=== PATIENT | male | born 1945 | race Caucasian/White ===

== ENCOUNTER → 2016-05-16 | Outpatient (CLI) | payer OTHER ==
[2016-05-16 13:39] LABS: BLOOD UREA NITROGEN 15 mg/dl (7-18); BUN/CREATININE RATIO 18.3 (10-20); CALCIUM 9.2 mg/dl (8.5-10.1); CARBON DIOXIDE 29 mmol/L (21-32); CHLORIDE 104 mmol/L (98-107); CREATININE 0.83 mg/dl (0.60-1.40); GLUCOSE 100 mg/dl (70-99); POTASSIUM 3.8 mmol/L (3.5-5.1); SODIUM 143 mmol/L (136-145)
--- NOTE | 2016-05-21 10:10 | CODING QUERY MEDICAL NECESSITY ---
SUPPORTING DIAGNOSIS NEEDED A supporting diagnosis is required for the test/procedure performed on this patient in order for us to be reimbursed by the patient's insurance. Please provide a supporting diagnosis for the following test/procedure listed below next to the test name along with your signature. *If there is no additional diagnosis for this patient that would support the following test/procedure please document that below next to the test/procedure. Test(s)/Procedure(s) that require a supporting diagnosis: * PSA DIAGNOSIS: * DOS: 05/16/16 Provider Signature: Date: Thank you Sepideh Arroyo [facility] Information Management Once completed, please kindly fax back to [phone] For questions please call [phone]
== END | disposition home or self-care (01) ==
LOC: C.LABMFLN 11:00
PROVIDERS: ATTEND Family Medicine
DX: E29.9 Testicular dysfunction, unspecified (principal); J45.909 Unspecified asthma, uncomplicated; R03.0 Elevated blood-pressure reading, without diagnosis of hypertension; Z12.5 Encounter for screening for malignant neoplasm of prostate

== ENCOUNTER → 2017-07-02 | Outpatient (CLI) | payer OTHER ==
[2017-07-02 12:34] LABS: HEMATOCRIT 36.4 % (42-52)
[2017-07-02 12:54] LABS: BLOOD UREA NITROGEN 20 mg/dl (7-18); CALCIUM 8.8 mg/dl (8.5-10.1); CARBON DIOXIDE 33 mmol/L (21-32); GLUCOSE 91 mg/dl (70-99); SODIUM 140 mmol/L (136-145)
== END | disposition home or self-care (01) ==
LOC: C.LABMFLN 10:18
PROVIDERS: ATTEND Family Medicine
DX: E29.9 Testicular dysfunction, unspecified (principal); J45.909 Unspecified asthma, uncomplicated

== ENCOUNTER 2023-03-17 08:30 | Observation (INO) ==
--- NOTE | 2023-02-10 10:53 | PAT Medication Instructions ---
Medication Instructions Date of Service February 10, 2023 Home Medications Medication Instructions Recorded albuterol sulfate 90 mcg/actuation 2 puff inhalation Q4H PRN 08/22/22 aerosol inhaler (Ventolin HFA) shortness of breath or wheezing #1 ea fluticasone propionate 44 44 mcg inhalation Q12H #10.6 grams 08/22/22 mcg/actuation HFA aerosol inhaler (Flovent HFA) fluticasone propionate 50 2 spray intranasal HS #9.9 grams 08/22/22 mcg/actuation nasal spray,suspension (Allergy Relief (fluticasone)) albuterol sulfate 90 mcg/actuation aerosol inhaler (Ventolin HFA) 2 puff inhalation Q4H PRN fluticasone propionate 44 mcg/actuation HFA aerosol inhaler (Flovent HFA) 44 mcg inhalation Q12H fluticasone propionate 50 mcg/actuation nasal spray,suspension (Allergy Relief (fluticasone)) 2 spray intranasal HS Folate 1 dose PO DAILY acetaminophen 325 mg tablet (Tylenol) 325 mg PO QID PRN cholecalciferol (vitamin D3) 25 mcg (1,000 unit) chewable tablet (Vitamin D3) 25 mcg PO DAILY cyanocobalamin (vitamin B-12) 50 mcg tablet 50 mcg PO UD ibuprofen 200 mg tablet 200 mg PO Q6H PRN magnesium 250 mg tablet 250 mg PO BID potassium 99 mg tablet 99 mg PO DAILY zinc acetate 25 mg (zinc) capsule 25 mg PO DAILY ASK your surgeon for instructions ibuprofen 200 mg tablet 200 mg PO Q6H PRN DO NOT take the morning of surgery Folate 1 dose PO DAILY cholecalciferol (vitamin D3) 25 mcg (1,000 unit) chewable tablet (Vitamin D3) 25 mcg PO DAILY cyanocobalamin (vitamin B-12) 50 mcg tablet 50 mcg PO UD magnesium 250 mg tablet 250 mg PO BID potassium 99 mg tablet 99 mg PO DAILY zinc acetate 25 mg (zinc) capsule 25 mg PO DAILY Take morning of surgery With a small sip of water, OTHERWISE NOTHING TO EAT OR DRINK AFTER MIDNIGHT: albuterol sulfate 90 mcg/actuation aerosol inhaler (Ventolin HFA) 2 puff inhalation Q4H PRN(use if needed; please bring with you to hospital day of surgery if possible) fluticasone propionate 44 mcg/actuation HFA aerosol inhaler (Flovent HFA) 44 mcg inhalation Q12H acetaminophen 325 mg tablet (Tylenol) 325 mg PO QID PRN(if needed) Take evening before surgery albuterol sulfate 90 mcg/actuation aerosol inhaler (Ventolin HFA) 2 puff inhalation Q4H PRN(if needed) fluticasone propionate 44 mcg/actuation HFA aerosol inhaler (Flovent HFA) 44 mcg inhalation Q12H fluticasone propionate 50 mcg/actuation nasal spray,suspension (Allergy Relief (fluticasone)) 2 spray intranasal HS acetaminophen 325 mg tablet (Tylenol) 325 mg PO QID PRN(if needed) magnesium 250 mg tablet 250 mg PO BID Other Notes If you have any questions please call us at [phone] or [phone] or [phone] or [phone]
--- NOTE | 2023-02-13 10:54 | Anesthesiology Consultation ---
Date of Service February 13, 2023 Assessment & Plan (1) Encounter for pre-operative examination: - left carotid bruit detected at PAT visit. Patient notes that he had testing done years ago at a [facility] and was informed of mild plaque in left carotid. He will need formal imaging prior to surgery. Reported h/o intermittent dizziness/lightheadedness-last occurred over 1 year ago. He was instructed to follow-up with PCP regarding symptoms and carotid imaging. He verbalized understanding and agreement, denied questions or concerns. Workload note sent to [place] PCP requesting coordination of carotid imaging prior to surgery and anemia. Surgeon's office made aware. Chart Review Chart Review: Pending: Refer to Additional Notes / Consult section and Patient seen in Pre Admission Testing Teaching & Discussion Pre-Anesthesia Teaching/Discussion Notes: Instructed NPO after midnight before surgery, except medications with 15 cc of water. Medication instructions provided according to the [facility] guidelines. History Surgery Operation Date: 03/17/23 07:15 Proposed Procedures p L3-L4 & L4-L5 Decompression - Jesse Romero MD Height/Weight Height: 5 ft 7 in Weight: 52.5 kg Allergies Allergy/AdvReac Type Severity Reaction Status Date / Time NSAIDS (Non-Steroidal AdvReac Intermediate HTN Verified 02/06/23 11:39 Anti-Inflamma Medications Home Medications Medication Instructions Recorded Confirmed Last Taken albuterol sulfate 90 mcg/actuation 2 puff inhalation Q4H PRN 08/22/22 02/06/23 Unknown aerosol inhaler (Ventolin HFA) shortness of breath or wheezing #1 ea fluticasone propionate 44 44 mcg inhalation Q12H #10.6 grams 08/22/22 02/06/23 Unknown mcg/actuation HFA aerosol inhaler (Flovent HFA) fluticasone propionate 50 2 spray intranasal HS #9.9 grams 08/22/22 02/06/23 Unknown mcg/actuation nasal spray,suspension (Allergy Relief (fluticasone)) Folate 1 dose PO DAILY 02/06/23 02/06/23 Unknown acetaminophen 325 mg tablet 325 mg PO QID PRN Pain 02/06/23 02/06/23 Unknown (Tylenol) cholecalciferol (vitamin D3) 25 25 mcg PO DAILY 02/06/23 02/06/23 Unknown mcg (1,000 unit) chewable tablet (Vitamin D3) cyanocobalamin (vitamin B-12) 50 50 mcg PO UD 02/06/23 02/06/23 Unknown mcg tablet ibuprofen 200 mg tablet 200 mg PO Q6H PRN Pain 02/06/23 02/06/23 Unknown magnesium 250 mg tablet 250 mg PO BID 02/06/23 02/06/23 Unknown potassium 99 mg tablet 99 mg PO DAILY 02/06/23 02/06/23 Unknown zinc acetate 25 mg (zinc) capsule 25 mg PO DAILY 02/06/23 02/06/23 Unknown Past Medical History Medical History (Updated 02/13/23 @ 11:22 by Lila Hutchinson PA-C) GERD (gastroesophageal reflux disease) controlled, stable per pt-occurs if eats too much chocolate per pt Cardiac murmur very mild per pt; not noted at [place] PCP office visit 07/2022 Facet syndrome, lumbar Lower back pain Asthma well controlled > rare res inh use-last rescue inhaler use 2 yrs ago Elevated BP without diagnosis of hypertension Patient denies h/o stroke, seizures, heart attack, heart failure, DM, blood clots/DVTs or blood transfusions. Exercise / Class Metabolic Activity II 4-5 Yardwork/Stairs/Walk up hill (denies chest discomfort or shortness of breath with 1 FOS) Past Family History Family History Mother Myocardial infarction Sister Myocardial infarction Father Tuberculosis Denies family history of Ovarian cancer Prostate cancer Breast cancer Colorectal cancer Past Surgical History Surgical History S/P epidural steroid injection History of colonoscopy History of tooth extraction H/O sinus surgery Past Anesthesia History No Hx of Anesthesia Complications and No Family Hx of Anesthesia Complications History of PONV No Hx of Motion Sickness and History of PONV (denies needing scop patch) Social History Smoking Status: Never smoker Do You Dip or Chew Tobacco: No Hx Alcohol Use: No Hx Substance Use: No substance use type: does not use Review of Systems Snoring, denies witnessed apneas. Patient denies chest pain, shortness of breath, dyspnea on exertion, fever, chills, cough, wheezing, dizziness, lightheadedness, presyncope, visual changes, or palpitations. Physical Exam Vital Signs Vitals BP 180/70 left arm, 168/69 left arm manual after patient rested (Pt notes chronic h/o white coat HTN, states BP today at home was 116/70s) P 83 TEMP 97.6 SP02 96% on RA RESP 17 Physical Patient resting comfortably in chair in no acute distress, alert and oriented, responding appropriately throughout visit Full cervical extension range of motion without pain TMD 3.5 finger breadths Mallampati Score 2 Dentition: intact, denies chipped or loose teeth, caps/crowns, implants or bridges Lungs: normal respiratory effort. Good air movement, clear throughout to auscultation, no adventitious breath sounds Cardiac: regular rate and rhythm, no murmurs noted Carotid arteries: faint left carotid bruit, no right carotid bruit Lab Results Anesthesia Preop Results Results Anesthesia Widget: WBC 6.60 K/ul (4.8-10.8) 02/13/23 Hgb 12.1 g/dl (14.0-18.0) L 02/13/23 Hct 38.4 % (42.0-52.0) L 02/13/23 Plt 198 K/uL (130-400) 02/13/23 Na 140 mmol/L (136-145) 02/13/23 K 4.2 mmol/L (3.5-5.1) 02/13/23 Cl 103 mmol/L (98-107) 02/13/23 CO2 30 mmol/L (21-32) 02/13/23 BUN 25 mg/dl (6-23) H 02/13/23 Creat 0.76 mg/dl (0.6-1.4) 02/13/23 Glucose Level 98 mg/dl (70-99(Fasting)) 02/13/23 PT 10.9 Seconds (9.0-12.0) 02/13/23 PTT 27 Seconds (21-31) 02/13/23 INR 1.0 (0.9-1.1) 02/13/23 Blood Type B Positive 02/13/23 Antibody Screen NEGATIVE 02/13/23 Testing Electrocardiogram Date: 02/13/23 NSR, rate 65 bpm RA enlargement Rightward axis
[2023-03-17] MEDS: LR 15ML/HR IV SCH (08:55)
[2023-03-17] MEDS: LR 60ML/HR IV SCH (09:01)
[2023-03-17] MEDS ORDERED: ACETAMINOPHEN 1000 MG/100 ML IV IV ONE (09:23)
--- OUTSIDE RECORDS SUMMARY | 2023-03-17 09:31 | External Medical Summary | Summary of Care ---
Author Name Unknown Organization [facility] Address [address] [place] [address] Phone [phone] Care Team Providers Care Surface Miner Name Role Phone Brock Husain MD Primary Care Provider [phone] Encounter Details Date Type Department Care Team (Latest Contact Info) Description 02/25/2023 1:00 PM EST - 02/25/2023 11:59 PM EST Hospital Encounter Vascular Lab, [address] [address] Arrived Discharge Disposition: Home - Self Care Allergies No known active allergiesdocumented as of this encounter (statuses as of 02/26/2023) Medications Medication Sig Dispensed Refills Start Date End Date Status FLONASE 50 MCG/ACT NA SUSP 2 squirts each nostril at bedtime 0 Active VITAMIN C 500 MG PO TABS 1/2 tablet daily 0 Active VITAMIN D 1000 UNITS PO TABS 1/4 tablet daily 0 Active [facility] IRON 240 (27 FE) MG PO TABS one pill each day 0 Active documented as of this encounter (statuses as of 02/26/2023) Social History Tobacco Use Types Packs/Day Years Used Date Smoking Tobacco: Never Assessed Sex and Gender Information Value Date Recorded Sex Assigned at Not on file Gender Identity Not on file Sexual Orientation Not on file Job Start Date Occupation Industry Not on file Not on file Not on file documented as of this encounter Plan of Treatment Scheduled Procedures Name Priority Associated Diagnoses Date/Ti me COLONOSCOPY FLEXIBLE PROXIMA L DIAGNOSTIC Recall History of colonic polyps Health Maintenance Due Date Last Done Comments Depression Screening 1957 Hepatitis C Screening 05/10/1963 DTaP,Tdap,and Td Vaccines (1 - Tdap) 05/10/1962 Zoster Vaccines (1 of 2) 05/10/1993 Influenza Vaccine (FLU shot) (#1) 2022 COLONOSCOPY-EVERY 5 YRS AGES 18-100 05/28/2023 05/27/2018, 05/27/2018, 10/16/2011, Additional history exists Pneumococcal Vaccine: 65+ Years Completed 05/13/2017, 12/05/2013 COVID-19 Vaccine Completed 12/26/2022, , 05/29/2021, Additional history exists GARDASIL-HPV IMMUNIZATION SERIES Aged Out No longer eligible based on patient's age to complete this topic Hepatitis B Aged Out No longer eligi ble based on patient's age to complete this topic MENINGOCOCCAL (MENACTRA/MENVEO) Aged Out No longer eligible based on patient's age to complete this topic documented as of this encounter Medical Devices Not on filedocumented as of this encounter Procedures Procedure Name Priority Date/Time Associated Diagnosis Comments [facility] DUPLEX CAROTID BILAT Routine 02/25/2023 1:23 PM EST Occlusion and stenosis of left carotid artery documented in this encounter Results * [facility] DUPLEX CAROTID BILAT (02/25/2023 1:23 PM EST) Anatomical Region Laterality Modality Neck, Vascular Ultrasound Narrative 02/25/2023 3:40 PM EST VASCULAR LAB RESULTS DATE OF EXAM: 02/25/23 PRESENTING CONDITIONS: occlusion and stenosis of left carotid artery PHYSICIAN REPORT Carotid Artery Duplex Examination Immediately before proceeding with the vascular lab procedure reported below, the identity of the patient, the correct exam and the correct procedural site were verified. Dyer scale and color flow Doppler imaging was performed for evaluation of the right carotid artery. Duplex examination of the right carotid artery identifies atherosclerotic plaque at the carotid bifurcation. The plaque is echogenic and appears to have a smooth surface. Color Doppler imaging was performed for evaluation of the right carotid bifurcation. Spectral analysis of the right internal carotid artery demonstrates peak systolic velocities of 99 cm/sec. Maximum end diastolic velocities are 23 cm/sec.. Peak right common carotid velocity is 104 cm/sec. The right internal carotid to common carotid ratio is 1.0. The right external carotid artery has a peak velocity of 137 centimeters per second. Dyer scale and color flow Doppler imaging was performed for the evaluation of the left carotid artery. Duplex examination of the left carotid artery identifies atherosclerotic plaque at the carotid bifurcation. The plaque is echogenic and appears to have a smooth surface. Color Doppler imaging was performed for the evaluation of the left carotid bifurcation. Spectral analysis of the left internal carotid artery demonstrates peak systolic velocities of 91 cm/sec. Maximum end diastolic velocities are 26 cm/sec. Peak left common carotid velocity is 85 cm/sec. The left internal carotid to common carotid ratio is 1.1. The left external carotid artery has a peak velocity of 129 centimeters per second. The right vertebral artery demonstrates antegrade flow. The left vertebral artery demonstrates antegrade flow. Impression: Right carotid artery duplex examination indicates evidence of less than 50% stenosis of the internal carotid artery. Left carotid artery duplex examination indicates evidence of less than 50% stenosis of the internal carotid artery. Brock Husain MD RAD VASCULAR documented in this encounter Visit Diagnoses Diagnosis Occlusion and stenosis of left carotid artery Occlusion and stenosis of carotid artery without mention of cerebral infarction documented in this encounter Care Teams Surface Miner Relationship Specialty Start Date End Date Brock Husain MD [address] [place] [address] PCP - General Family Medicine 09/26/14 documented as of this encounter
--- OUTSIDE RECORDS SUMMARY | 2023-03-17 09:31 | External Medical Summary | Summary of Care ---
Author Name Unknown Organization [facility] Address [address] [place] [address] Phone [phone] Care Team Providers Care Cocktail Lounge Manager Name Role Phone Brock uHsain MD Primary Care Provider [phone] Encounter Details Date Type Department Care Team (Late st Contact Info) Description 02/19/2023 Orders Only Access Center, [address] Ext *DO NOT REMOVE THIS DEPARTMENT* [place] [address] Requisition, External Radiology [address] [place] [address] Occlusion and stenosis of left carotid artery* Allergies No known active allergiesdocumented as of this encounter (statuses as of 02/19/2023) Medications Medication Sig Dispensed Refills Start Date [...] as of this encounter (statuses as of 02/19/2023) Social History Tobacco Use Types Packs/Day Years Used Date Smoking Tobacco: Never Assessed Sex and Gender Information Value Date Recorded Sex Assigned at Not on file Gender Identity Not on file Sexual Orientation Not on file Job Start Date Occupation Industry Not on file Not on file Not on file documented as of this encounter Plan of Treatment Upcoming Encounters Date Type Department Care Team (Late st Contact Info) Description 02/25/2023 1:00 PM EST Appointment Vascular Lab, [facility] [address] [place] [id number] Scheduled Orders Name Type Priority Associated Diagnoses Orde r Schedule VASC DUPLEX CAROTID BILAT Medical Imaging Routine Occlusion and stenosis of left carotid artery Expected: 02/19/2023, Expires: 03/22/2024 Scheduled Procedures Name Priority Associated Diagnoses Date/Ti me COLONOSCOPY FLEXIBLE PROXIMA L DIAGNOSTIC Recall History of colonic polyps Health Maintenance Due Date Last Done Comments Depression Screening 1957 Hepatitis C Screening 05/10/1963 DTaP,Tdap,and Td Vaccines (1 - Tdap) 05/10/1962 Zoster Vaccines (1 of 2) 05/10/1993 COVID-19 Vaccine (6 - 2022- season) 2022 12/31/2021, 05/29/2021, 12/14/2020, Additional history exists Influenza Vaccine (FLU shot) (#1) 2022 COLONOSCOPY-EVERY 5 YRS AGES 18-100 05/28/2023 05/27/2018, 05/27/2018, 10/16/2011, Additional history exists Pneumococcal Vaccine: 65+ Years Completed 05/13/2017, 12/05/2013 GARDASIL-HPV IMMUNIZATION SERIES Aged Out No longer eligible based on patient's age to complete this topic Hepatitis B Aged Out No longer eligi ble based on patient's age to complete this topic MENINGOCOCCAL (MENACTRA/MENVEO) Aged Out No longer eligible based on patient's age to complete this topic documented as of this encounter Medical Devices Not on filedocumented as of this encounter Visit Diagnoses Diagnosis Occlusion and stenosis of left carotid artery- Primary Occlusion and stenosis of carotid artery without mention of cerebral infarction documented in this encounter Care Teams Cocktail Lounge Manager Relationship Specialty Start Date End Date Brock Husain MD [address] [facility] [place] [address] PCP - General Family Medicine 09/26/14 documented as of this encounter
[2023-03-17] MEDS ORDERED: ePHEDrine sulfate 50 MG/ML AMP IV PRN (09:57)
[2023-03-17] MEDS ORDERED: fentaNYL citrate PF 100 MCG/2 ML VIAL IV PRN (09:57)
[2023-03-17] MEDS ORDERED: ONDANSETRON INJ 2 MG/ML 2 ML VIAL IV PRN ×2 (09:57→16:09)
[2023-03-17] MEDS ORDERED: ATROPINE SULFATE 0.1 MG/ML 10ML SYR IV PRN (09:57)
[2023-03-17] MEDS ORDERED: PROPOFOL IV EMULSION 10 MG/ML 20 ML VIAL IV ONE (10:50)
[2023-03-17] MEDS ORDERED: MIDAZOLAM HCL 1 MG/ML 2ML VIAL ONE (10:50)
[2023-03-17] MEDS ORDERED: LIDOCAINE 2% 2 ML VIAL/AMP(20MG/ML) INFIL ONE (10:50)
[2023-03-17] MEDS ORDERED: DEXAMETHASONE SOD INJ 4 MG/ML VIAL ONE (10:50)
[2023-03-17] MEDS ORDERED: ROCURONIUM BROMIDE 10 MG/ML 5 ML VIAL IV ONE ×2 (10:50→12:32)
[2023-03-17] MEDS ORDERED: ONDANSETRON INJ 2 MG/ML 2 ML VIAL ONE (10:50)
[2023-03-17] MEDS ORDERED: fentaNYL citrate PF 100 MCG/2 ML VIAL ONE ×2 (10:50→12:43)
--- NOTE | 2023-03-17 11:23 | History & Physical Report ---
Date of Service March 17, 2023 History of Present Illness Chief Complaint: Patient returns with his daughter, this is for review of his radiographs and MRI and additional discussion about potential surgical intervention. He relates he continues to have symptoms with decreased ability to ambulate, having to walk leaning forward. No other new changes on examination pain indicated lower lumbar spine. 4 views of the lumbar spine taken for to day's office AP lateral flexion- extension views reveal on AP view hip joints to be unremarkable, relatively straight spine, on the lateral view there is normal lordosis, but there is grade 1 spondylolisthesis at L4-5 which does change on flexion, certainly when reviewed relative to the extension view. Review of MRI images of the lumbar spine from [facility] from November 04, 2022, this my separate interpretation, reveals patient to have the main findings to be at L3-4 and L4-5 where he has severe stenosis combination of disc bulge and/or protrusion and thickened ligamentum flavum and facet arthropathy, there is grade 1 anterolisthesis of L4 on L5 with facet arthrosis involving these levels. L5-S1 has degenerative changes with some loss of height but no significant stenosis. Impression: 2 levels of notable stenosis at L3-4 and L4-5 with degenerative spinal listhesis at L4-5, some additional degenerative changes at L5-S1. Plan: Today I reviewed these images with the patient and his daughter again, I went over these in detail using a model went on to explain all the structures involved and how it is related to his symptoms. I did review the fact that he does have degenerative spondylolisthesis and we discussed potential intervention with cage placement, but in talking with him today I also noted to them that we could consider a limited decompression at both L3-4 and L4-5. The goal would be to limit the amount of bony removal, and with removal of thickened ligamentum flavum I think decompression can be achieved at the L4-5 level without fusion, though it may be necessary at some point in future, and this was explained. We agreed upon the patient moving ahead with the posterior lumbar decompression at L3-4 and L4-5, I went on to explain hospital postoperative course, potential risk complications associated procedure and limitations of activities afterwards. They were in agreement with this plan will work to get him scheduled in the near future. Ortho Intake Intake: Visit Reasons: EST/DISCUSS LUMBAR SX Visit Details: Pt presents today to discuss lumbar spine sx Allergy/AdvReac Type Severity Reaction Status Date / Time NSAIDS (Non-Steroidal AdvReac HTN Verified 11/27/22 09:34 Anti-Inflamma PFSH PFSH: Medical History Asthma Elevated BP without diagnosis of hypertension Facet syndrome, lumbar Lower back pain No pertinent past medical history Vitamin B12 deficiency Surgical History H/O sinus surgery Family History Mother Myocardial infarctionSister Myocardial infarctionFather TuberculosisDenies family history of Ovarian cancerProstate cancerBreast cancerColorectal cancer Social History Smoking Status: Never smoker Second Hand Exposure: No; Do You Dip or Chew Tobacco: No; Hx Alcohol Use: No Hx Substance Use: No Preferred Language: Panamanian Communication Ability: Effective Visual Impairment: Limited Hearing Ability: Normal Molded Parts Inspector Required: No marital status: Current Living Situation: Spouse current occupational status: retired current occupation: Worked at a [employer] How many Children do You have: 3 Feels Safe at Home: Yes Childhood Exposure to Second-Hand Smoke: No Diet: vegetarian Dental Care, Regularly: No Seatbelt Use: always Sunscreen Use: Yes Assistive Devices: Glasses Plan Surgery Spine Procedure Lumbar Codes: LAMINECTOMY 15T LEVEL (80981) and ADDITIONAL LEVELS (SINGLE VERTEBRAL SEGMENT) (87711) Comment: L3-4 and L4-5 posterior lumbar decompression Coding Level of Care Code 75028 OP VST EST MOD 30-39 MIN Diagnoses Lumbar stenosis with neurogenic claudication M48.062 Spondylolisthesis of lumbar region M43.16 Review of Systems All systems reviewed & are unremarkable except as noted in HPI & below. Primary Care Provider: Brock Husain MD Allergies Allergy/AdvReac Type Severity Reaction Status Date / Time NSAIDS (Non-Steroidal AdvReac Intermediate HTN Verified 03/17/23 09:04 Anti-Inflamma Home Medications Medication Instructions Recorded Confirmed Type albuterol sulfate 90 mcg/actuation 2 puff inhalation Q4H PRN 08/22/22 03/17/23 Rx aerosol inhaler (Ventolin HFA) shortness of breath or wheezing #1 ea fluticasone propionate 50 2 spray intranasal HS #9.9 grams 08/22/22 03/17/23 Rx mcg/actuation nasal spray,suspension (Allergy Relief (fluticasone)) Folate 1 dose PO DAILY 02/06/23 03/17/23 History acetaminophen 325 mg tablet 325 mg PO QID PRN Pain 02/06/23 03/17/23 History (Tylenol) cholecalciferol (vitamin D3) 25 25 mcg PO DAILY 02/06/23 03/17/23 History mcg (1,000 unit) chewable tablet (Vitamin D3) cyanocobalamin (vitamin B-12) 50 50 mcg PO UD 02/06/23 03/17/23 History mcg tablet ibuprofen 200 mg tablet 200 mg PO Q6H PRN Pain 02/06/23 03/17/23 History magnesium 250 mg tablet 250 mg PO BID 02/06/23 03/17/23 History potassium 99 mg tablet 99 mg PO DAILY 02/06/23 03/17/23 History zinc acetate 25 mg (zinc) capsule 25 mg PO DAILY 02/06/23 03/17/23 History fluticasone propionate 44 1 puff inhalation BID #10.6 grams 03/16/23 03/17/23 Rx mcg/actuation HFA aerosol inhaler Past Med/Surg History Medical History GERD (gastroesophageal reflux disease) controlled, stable per pt-occurs if eats too much chocolate per pt Cardiac murmur very mild per pt; not noted at [place] PCP office visit 07/2022 Facet syndrome, lumbar Lower back pain Asthma well controlled > rare res inh use-last rescue inhaler use 2 yrs ago Elevated BP without diagnosis of hypertension Surgical History S/P epidural steroid injection History of colonoscopy History of tooth extraction H/O sinus surgery Family History Mother Myocardial infarction Sister Myocardial infarction Father Tuberculosis Denies family history of Ovarian cancer Prostate cancer Breast cancer Colorectal cancer Social History Smoking Status: Never smoker Second Hand Exposure: No; Do You Dip or Chew Tobacco: No; Tobacco Cessation Education Requested by Patient: No Hx Alcohol Use: No Hx Substance Use: No Preferred Language: Panamanian Communication Ability: Effective Visual Impairment: Limited Hearing Ability: Normal Molded Parts Inspector Required: No Beliefs That Will Affect Care: None marital status: Current Living Situation: Spouse current occupational status: retired current occupation: Worked at a [employer] How many Children do You have: 3 Other Information That Helps Us Care for You: No Feels Safe at Home: Yes Safety Concerns: Feels Safe At This Time Childhood Exposure to Second-Hand Smoke: No Diet: vegetarian Dental Care, Regularly: No Seatbelt Use: always Sunscreen Use: Yes Assistive Devices: Glasses Results & Data Results & Data Vital Signs (Past 12 Hours) Vital Signs Temp Pulse Resp BP Pulse Ox O2 Del Method 03/17/23 09:32 90 20 149/71 H 98 Room Air 03/17/23 08:53 36.7 C 97 H 20 187/94 H 100 Room Air
--- NOTE | 2023-03-17 11:24 | History & Physical Bridge Note ---
Date of Service March 17, 2023 History & Physical Bridge Note I have examined the patient, reviewed the History & Physical and in the interval since the performance of the History & Physical I have noted the following changes of clinical significance: no changes noted
[2023-03-17] MEDS: ceFAZolin 2000MG 2,000 MG/15 ML SYR IV SCH (12:15)
[2023-03-17] MEDS ORDERED: ePHEDrine sulfate 50 MG/5 ML SYR ONE (12:40)
[2023-03-17] MEDS: THROMBIN 5000 UNITS KIT ONE (14:15)
[2023-03-17] MEDS: GELATIN SPONGE SZ 100 ONE (14:15)
[2023-03-17] MEDS: VANCOMYCIN HCL 1000MG/20ML VIAL ONE (14:15)
[2023-03-17] MEDS: BUPIVACAINE/EPINEPHRINE 0.5% MPF 1:200,000 30 ML VIAL ONE (14:18)
[2023-03-17] MEDS ORDERED: SUGAMMADEX SODIUM 200 MG/2 ML VIAL IV ONE (14:20)
--- NOTE | 2023-03-17 14:48 | Fluoroscopy Report ---
[place] spine 1V any level CLINICAL HISTORY: L3-L4, L4-L5 DECOMPRESSION COMPARISON STUDY: Lumbar spine 11/14/2022. FLUOROSCOPY TIME: 27 seconds FLUOROSCOPY IMAGES: 1 Ka,r: 8.2 mGy FINDINGS: There are surgical instruments posterior to the L3-L5 levels. IMPRESSION: Fluoroscopic assistance as above. ACT 112: Negative or not required by law. Electronically signed by: Alexsander Goldberg M.D. 03/17/2023 2:47 PM
--- NOTE | 2023-03-17 14:59 | Post Operative Brief Note ---
PG Immediate Post Op with CF Date of Surgery March 17, 2023 Pre & Post Diagnosis Operation Date: 03/17/23 10:05 Pre-Op Diagnosis: Lumbar Stenosis with Neurogenic Claudication Post-Op Diagnosis: Lumbar Stenosis with Neurogenic Claudication I identified the patient and participated in the time-out.: Yes Procedure Operation Date: 03/17/23 10:05 Actual Procedures p L3-L4, L4-L5 Decompression(Not Applicable) - Jesse Romero MD Surgeon Jesse Romero MD Weather [place] none Estimated Blood Loss 30 Findings Consistent with Post-Op Diagnosis
--- NOTE | 2023-03-17 15:37 | Anesthesiology Progress Note ---
Date of Service March 17, 2023 Anesthesia Post Procedure Vital Signs Vital Signs: Temp Pulse Pulse Resp BP Pulse Ox O2 Del Method 03/17/23 15:20 36.5 C 88 20 144/65 H 100 Room Air 03/17/23 15:10 75 17 138/56 L 100 Room Air 03/17/23 15:00 79 15 136/59 L 100 Oxymask 03/17/23 14:53 36.0 C L 14 135/56 L 100 Oxymask 03/17/23 09:32 90 20 149/71 H 98 Room Air 03/17/23 08:53 36.7 C 97 H 20 187/94 H 100 Room Air O2 Flow Rate 03/17/23 15:20 03/17/23 15:10 03/17/23 15:00 10 03/17/23 14:53 10 03/17/23 09:32 03/17/23 08:53 Pain Intensity Lower Back: Pain Intensity: 2 Transfer of Care Handoff Completed per policy Notes Mental Status: alert / awake / arousable Patient Amnestic to Procedure: Yes Nausea / Vomiting: adequately controlled Pain: adequately controlled Airway Patency, RR, SpO2: stable & adequate BP & HR: stable & adequate Hydration State: stable & adequate Anesthetic Complications: no major complications apparent
[2023-03-17] MEDS: LACTATED RINGER'S 1,000 ML IV SCH (15:45)
[2023-03-17] MEDS ORDERED: METOCLOPRAMIDE HCL INJ 5 MG/ML 2 ML VIAL IV PRN (16:09)
[2023-03-17] MEDS ORDERED: MAGNESIUM HYDROXIDE SUSP 30 ML UDC PO PRN (16:09)
[2023-03-17] MEDS ORDERED: DO NOT ADMINISTER FLU VACCINE PRN (16:09)
[2023-03-17] MEDS ORDERED: LORazepam 0.5 MG TAB PO PRN (16:09)
[2023-03-17] MEDS ORDERED: SOD PHOSPHATE/SOD BIPHOSPHATE ENEMA 132 ML BTL PR PRN (16:09)
[2023-03-17] MEDS ORDERED: ACETAMINOPHEN 500 MG TAB PO PRN (16:09)
[2023-03-17] MEDS ORDERED: FAMOTIDINE 20 MG TAB PO PRN (16:09)
[2023-03-17] MEDS ORDERED: ACETAMINOPHEN 1,000 MG/100 ML VIAL IV PRN (16:09)
[2023-03-17] MEDS ORDERED: DO NOT ADMINISTER PNEUMOCOCCAL VACCINE PRN (16:09)
[2023-03-17] MEDS ORDERED: NALOXONE HCL 0.4 MG/1 ML VIAL/CARP IV PRN (16:09)
[2023-03-17] MEDS ORDERED: diphenhydrAMINE Capsule 25 MG CAP PO PRN (16:09)
[2023-03-17] MEDS ORDERED: oxyCODONE/ACETAMINOPHEN 5mg/325mg TAB PO PRN (16:09)
[2023-03-17] MEDS ORDERED: PROMETHAZINE HCL 12.5 MG in SODIUM CHLORIDE 0.9% 50 ML IV PRN (16:09)
[2023-03-17] MEDS ORDERED: LORazepam 0.5 MG in SYRINGE 0.25 ML IV PRN (16:09)
[2023-03-17] MEDS ORDERED: bisacodyL 10 MG SUPP PR PRN (16:09)
[2023-03-17] MEDS ORDERED: ONDANSETRON 4 MG OD TAB PO PRN (16:09)
[2023-03-17] MEDS ORDERED: ALBUTEROL HFA 8 GM INHALER INH PRN (16:09)
[2023-03-17] MEDS ORDERED: HYDROmorphone INJ 0.5 MG/0.5 ML SYR IV PRN (16:09)
[2023-03-17] MEDS ORDERED: hydrOXYzine HCl 25 MG TAB PO PRN (16:09)
[2023-03-17] MEDS ORDERED: ALUMINUM/MAGNESIUM SUSP 30 ML UDC PO PRN (16:09)
--- NOTE | 2023-03-17 18:15 | Hospitalist Progress Note ---
Date of Service March 17, 2023 Assessment & Plan (1) Lumbar stenosis with neurogenic claudication: Plan: Postop day 0 from L3-4 L4-[address] Romero Doing well, potentially will discharge home tomorrow -routine postop care per ortho -caution with opioid and sedating meds with respect to his age, elevated risk of delirium Reviewed preop labs 02/13 Hct 38.4, MCV 66, Cr 0.76, nasal MRSA neg (2) Elevated BP without diagnosis of hypertension: Plan: Normotensive currenty BP 124/62 Has been hypertensive on some past checks -follow up in primary care (3) Asthma: Plan: Well controlled -continue fluticasone control inhaler and albuterol PRN -reports adequate supply of these at home (4) Vitamin B12 deficiency: Plan: Continue B12 supplement at home (5) Thalassemia: Plan: Low MCV on labs and very mild anemia consistent with his report of thalassemia -avoid iron replacement Plan Doing very well and will sign off, please contact [facility] hospitalists if any questions or concerns arise prior to discharge Follow up with PCP Dr. Husain for general medical issues Admission and Anticipated Discharge Date Admission Date: March 17, 2023 [place] is doing well postop, has mild ache type pain in low back following surgery today. Legs feel full strength and no numbness. Has asthma that is well controlled on fluticasone and not having any shortness of cough wheezing chest pain. He has no nausea or abdominal pain, had clears for dinner just now. Physical Exam Physical Exam: PHYSICAL EXAMINATION Last 24h vital signs reviewed, see documentation in flowsheet General: thin gentleman, comfortable appearing, no distress HEENT: Normocephalic, atraumatic, pupils round and equal, sclerae anicteric, no conjunctival injection, moist mucus membranes Lungs: Normal respiratory effort. Clear to auscultation bilaterally ant and post. No RRW lumbar incision is dressed, no strikethrough or drainage Heart: Regular rate and rhythm, no murmurs. No JVD Abdomen: Soft, nontender, nondistended. Bowel sounds present. Extremities: Warm, dry, well-perfused. No extremity edema. Neuro: Alert and oriented x 4, face symmetric, moves 4 extremities well. Distal LE strength 5/5 dorsi and plantar flexion Psych: Normal affect and behavior Results & Data Results & Data Vital Signs (Past 12 Hours) Vital Signs Temp Pulse Pulse Resp BP Pulse Ox O2 Del Method 03/17/23 17:46 36.9 C 90 18 124/62 97 Room Air 03/17/23 16:54 36.6 C 84 16 140/58 L 97 Room Air 03/17/23 16:25 86 16 145/68 H 96 Room Air 03/17/23 15:45 36.5 C 95 H 16 135/76 99 Room Air 03/17/23 15:20 36.5 C 88 20 144/65 H 100 Room Air 03/17/23 15:10 75 17 138/56 L 100 Room Air 03/17/23 15:00 79 15 136/59 L 100 Oxymask 03/17/23 14:53 36.0 C L 14 135/56 L 100 Oxymask 03/17/23 09:32 90 20 149/71 H 98 Room Air 03/17/23 08:53 36.7 C 97 H 20 187/94 H 100 Room Air O2 Flow Rate 03/17/23 17:46 03/17/23 16:54 03/17/23 16:25 03/17/23 15:45 03/17/23 15:20 03/17/23 15:10 03/17/23 15:00 10 03/17/23 14:53 10 03/17/23 09:32 03/17/23 08:53 PG Care Time/CCT Total # of Minutes Spent Total Time Spent with Patient: Total time spent is greater than 50% in coordination of care (as documented) at patient's floor/unit and/or counseling patient: Coding Level of Care Code 66525 SUB INP/OBS CARE 03/12MIN Diagnoses Lumbar stenosis with neurogenic claudication M48.062 Elevated BP without diagnosis of hypertension R03.0 Asthma J45.909 Vitamin B12 deficiency E53.8 Thalassemia D56.9
[2023-03-17] MEDS: ceFAZolin 1000MG 1,000 MG/7.5 ML SYR IV SCH (20:12)
[2023-03-17] MEDS: FLUTICASONE PROPIONATE NA SPR 16 GM BTL SCH (20:13)
[2023-03-17] MEDS: DOCUSATE SODIUM/SENNA 50/8.6MG TAB PO SCH (20:13)
[2023-03-18] MEDS: POLYETHYLENE (MIRALAX) 17 GM PACK PO SCH (05:16)
[2023-03-18] MEDS: FLUTICASONE FUROATE 100MCG 14 PUFFS/INHALER INH SCH (08:02)
--- NOTE | 2023-03-18 10:19 | Orthopedic Progress Note ---
Date of Service March 18, 2023 Assessment & Plan (1) Status post lumbar spine surgery for decompression of spinal cord: Overall, he is doing quite well today with good pain control to the lumbar spine as well as the bilateral lower extremities. He will work with physical therapy later this morning to work on ambulation and range of motion exercises. He can be discharged home later this morning pending physical therapy evaluation. He will follow-up with Dr. Romero in 2 weeks for postoperative care. Subjective . Jaya was seen and evaluated this morning resting comfortably in bed in no apparent distress. He notes that he is essentially pain-free at this moment. He notes that he has no lower extremity symptoms at this point that he did preoperatively. He has been up and out of bed with no significant issues. He has yet to work with physical therapy this morning. He denies any other concerns today. Review of Systems All systems reviewed & are unremarkable except as noted in HPI & below. Physical Exam . On physical examination of the lumbar spine, dressings are clean, dry, and intact. He has equal and intact motor and sensation nerve function distally diffusely throughout the lower extremities. He is able to do bilateral straight leg raises. +2 DP and PT pulses. Less than 2-second capillary refill. Normal sensation. Neurovascular intact. Results & Data Results & Data Laboratory Results . Diagnostic Findings . PG Care Time/CCT Total # of Minutes Spent Total Time Spent with Patient: Total time spent is greater than 50% in coordination of care (as documented) at patient's floor/unit and/or counseling patient: Coding Level of Care Code 57316 Post Operative Follow-Up Diagnoses Status post lumbar spine surgery for decompression of spinal cord Z98.890
--- NOTE | 2023-03-18 10:22 | Discharge Summary ---
Date of Service March 18, 2023 Principal Diagnosis Same as "Discharge Diagnosis" noted below under Discharge Instructions. Discharge Exam . On physical examination of the lumbar spine, dressings are clean, dry, and intact. He has equal and intact motor and sensation nerve function distally diffusely throughout the lower extremities. He is able to do bilateral straight leg raises. +2 DP and PT pulses. Less than 2-second capillary refill. Normal sensation. Neurovascular intact. Discharge Data Consultations 03/17/23 16:09 Consult Hospitalist Routine Procedures Performed Operation Date: 03/17/23 10:05 Actual Procedures p L3-L4, L4-L5 Decompression(Not Applicable) - Jesse Romero MD Ordered Studies 03/17/23 [place] spine 1V any level Routine Hospital Course (1) Status post lumbar spine surgery for decompression of spinal cord: On March 17, 2023 Jaya arrived at [facility] and underwent a L3- L4 and L4-L5 decompression performed by Dr. Romero with no complications. He had a general anesthetic. Postoperatively, he was transferred to the PACU for immediate postoperative care and then transferred to the general orthopedic [facility] in stable condition. His hospital course was uneventful. On postoperative day #1, his vital signs were stable and his pain was well-controlled. He participated well with physical therapy working on ambulation and range of motion exercises. He was then discharged home in stable condition. He will follow-up with Dr. Romero in 2 weeks for postoperative care. PG Care Time/CCT Total # of Minutes Spent Total Time Spent with Patient: Total time spent is greater than 50% in coordination of care (as documented) at patient's floor/unit and/or counseling patient: Discharge Plan Discharge Items Patient Disposition: Home - Self-Care Reason For Visit: SURGERY Discharge Diagnosis: Same Activity: Per Instructions section Non-emergency contact: Surgeon Call non-emergency contact if: your temperature is above 101.5, your wound has increased redness and your wound has increased drainage Follow-up/Referrals: Brock Husain MD [Primary Care Provider] - Diet: Regular Addtl Attending Provider Instructions: Please follow Dr. Romero Post Operative Instructions that were given in the office upon scheduling surgery. -Dressings will be changed prior to discharge. -Keep Surgical site dry for the next 3 days. -May shower after 3 days with no soaking of the surgical site -May leave surgical site open to air if dry. -Cover the surgical site with a bandage if draining or getting caught on clothes. -Take it easy for the next 2 weeks. (Ex: No Lifting, running, bending, or tw isting, etc.). -You will F/u with Dr. Romero in 2 weeks for postoperative care. -If any questions or concerns in the mean time, Reach out to [facility] [place] Orthopedics at [phone] Pending Studies at Discharge: No Stand-Alone Forms: [facility], Smoking Cessation Medications and DC Order Prescriptions: Continued albuterol sulfate [Ventolin HFA] 90 mcg/actuation HFA aerosol inhaler 2 puff INH Q4H PRN (Reason: shortness of breath or wheezing) Qty: 1 11RF fluticasone propionate [Allergy Relief (fluticasone)] 50 mcg/actuation spray,suspension 2 spray INTNAS HS Qty: 9.9 11RF Rx Instructions: administer into each nostril fluticasone propionate 44 mcg/actuation HFA aerosol inhaler 1 puff inhalation BID Qty: 10.6 3RF zinc acetate 25 mg (zinc) Capsule 25 mg PO DAILY cyanocobalamin (vitamin B-12) 50 mcg Tablet 50 mcg PO UD potassium 99 mg Tablet 99 mg PO DAILY magnesium 250 mg Tablet 250 mg PO BID cholecalciferol (vitamin D3) [Vitamin D3] 25 mcg (1,000 unit) Tablet,Chewable 25 mcg PO DAILY Folate 1 dose PO DAILY acetaminophen [Tylenol] 325 mg Tablet 325 mg PO QID PRN (Reason: Pain) ibuprofen 200 mg Tablet 200 mg PO Q6H PRN (Reason: Pain) Discharge Orders: Discharge Order (Routine); Ordered 03/18/23 Ordered By: Jrodan Price Admission Data Admit Date/Time: 03/17/23 15:08 Attending Provider: Jesse Romero Admit Provider: Jesse Romero Primary Care Provider: Brock Husain
--- NOTE | 2023-03-24 15:20 | Operative Report ---
PG Post Operative Report Pre & Post Diagnosis Operation Date: 03/17/23 10:05 Pre-Op Diagnosis: Lumbar Stenosis with Neurogenic Claudication Post-Op Diagnosis: Lumbar Stenosis with Neurogenic Claudication I identified the patient and participated in the time-out.: Yes Procedure Operation Date: 03/17/23 10:05 Actual Procedures p L3-L4, L4-L5 Decompression(Not Applicable) - Jesse Romero MD Surgeon Jesse Romero MD Rn Patient Services none Estimated Blood Loss 30 Findings Consistent with Post-Op Diagnosis Specimens None Description of Procedure 1. L3-4 lumbar decompression (44340) 2. L4-5 lumbar decompression (48391) Patient was brought to the operating room after adequate esthesia was carefully positioned prone on the Abdulkadir frame. Preprepped was performed followed by bringing in fluoroscopy were marked for the area of the incision at the L3-4 and L4-5 levels. Prep and drape was performed, I began the procedure with a midline incision carried down through the subcutaneous tissues to either side of the spinous processes down to the lamina from L3 down to the superior lamina of L5. The interlaminar region was then exposed at both levels followed by removal of a portion of the inferior aspect of the spinous process of L3 and L4. I then thinned the ligamentum flavum in this region. The operative microscope was brought in and I then starting at L4-5 level performed bilateral hemilaminotomies partial medial facetectomies. The remaining ligamentum flavum was then thinned and removed using combination of curettes and Kerrison punches undercutting the facets and decompressing the level. I then moved to the L3-4 level where the identical procedure was performed, but this is able to decompress both levels adequately for the L3-L4 and L5 exiting nerve roots bilaterally. Final inspection revealed no issues, vancomycin was placed along with local anesthetic injected. I then closed the incision using interrupted 0 Vicryl sutures reattaching the supraspinous ligament were available followed by subcuticular 2-0 sutures and then denise for the skin. Sterile dressing was applied, the patient tolerated procedure well was taken recovery room satistfactory condition. I attest to the content of the Intraoperative Record and any orders documented therein. Any exceptions are noted below.
== END 2023-03-18 12:41 | disposition home or self-care (01) ==
LOC: ASU 08:30 → 3N 08:30